=== PATIENT | female | born 1995 | race Two or more races ===

== ENCOUNTER 2017-03-10 19:53 | Emergency (ER) | payer MEDICAID ==
[~2017-03-10] VITALS: Ht 152.4 cm; Wt 90.7 kg
[2017-03-10 20:15] VITALS: BP 127/78
[2017-03-10] MEDS ORDERED: CIPROFLOXACIN500 M2 ORAL (20:16)
[2017-03-10 20:53] LABS: APPEARANCE,URINE CLEAR; BILIRUBIN, URINE NEGATIVE (NEGATIVE); GLUCOSE, URINE (UA) NEGATIVE (NEGATIVE); KETONES,URINE NEGATIVE (NEGATIVE); LEUKOCYTE ESTERASE ,URINE 1+ (NEGATIVE); NITRITE,URINE NEGATIVE (NEGATIVE); PH,URINE 6 (4.5-8.0); PROTEIN,URINE NEGATIVE (NEGATIVE); UROBILINOGEN,URINE NORMAL MG/DL (0.0-1.0)
[2017-03-10 20:57] LABS: COLOR,URINE YELLOW
[2017-03-10] MEDS ORDERED: COLACE100 MG ORAL (21:45)
[2017-03-10] MEDS ORDERED: PRILOSEC10 M1 ORAL (21:56)
[2017-03-10 21:59] VITALS: BP 120/71
--- NOTE | 2017-03-11 12:18 | Diagnostic Imaging Report ---
Indication: Abdominal pain Comparison: None Single view of the abdomen obtained Findings: Bowel gas pattern is nonspecific. No mass, ectopic calcifications, or abnormal gas collections are identified. Surgical clips noted in the right side of abdomen. The bones are unremarkable. Impression: No acute findings
--- NOTE | 2017-03-12 23:36 | Emergency Room Report ---
History of Present Illness General Chief Complaint: Abdominal Pain Source: Patient Present Illness HPI This is a 21-year-old female presented after increased left upper abdominal pain. Patient gradual onset of symptoms over the past few weeks. She previously been evaluated for similar symptoms at [facility]. The patient stated that she had previous CT imaging and was her previously diagnosed as having a urinary infection. She had finished antibiotics. She denied any diarrhea. She reported having some episodes of constipation. The patient denies vomiting or bloody stools. She denies being . Allergies: Coded Allergies: No Known Allergies (Unverified , 03/10/17) Patient History Past Medical History: see triage record Last Menstrual Period: 2 weeks ago Now: No : 1 Reviewed Nursing Documentation: PMH: Agreed, PSxH: Agreed Nursing Documentation-PMH Past Medical History: No Stated History Review of Systems All Other Systems: negative except mentioned in HPI Physical Exam Vital Signs Date Time Temp Pulse Resp B/P (MAP) Pulse Ox O2 Delivery O2 Flow Rate FiO2 03/10/17 20:11 97.9 03/10/17 20:15 72 15 127/78 98 Room Air Sp02 EP Interpretation: reviewed, normal General Appearance: normal inspection, well appearing, no apparent distress, alert, GCS 15 Head: atraumatic ENT: normal ENT inspection, hearing grossly normal, normal voice Neck: normal inspection, full range of motion, supple, no bony tend Respiratory: normal inspection, lungs clear, normal breath sounds, no respiratory distress, no retraction, no wheezing Cardiovascular #1: regular rate, rhythm, no edema Gastrointestinal: normal inspection, normal bowel sounds, non tender, soft, no guarding, no hernia Genitourinary: no CVA tenderness Musculoskeletal: normal inspection, back normal, normal range of motion Neurologic: normal inspection, alert, oriented x3, responsive, fretted instrument inspector III-XII nml as tested, motor strength/tone normal, speech normal Psychiatric: normal inspection, judgement/insight normal, mood/affect normal Skin: normal inspection, normal color, no rash Medical Decision Making Diagnostic Impression: Primary Impression: Abdominal pain ER Course Patient presented for abdominal pain. Differential diagnoses included ischemic bowel, appendicitis, perforated viscus, abdominal aortic aneurysm, inferior myocardial infarction, viral gastroenteritis. Patient's benign exam and does not appear to require any further imaging or laboratory testing at this time. KUB showed evidence of retained stool. There is no evidence of obstruction. The patient is advised to follow up with primary care doctor in 1-2 days. Patient is advised to return if any worsening condition or if any changes in status that are concerning. Labs Test 03/10/17 20:12 Urine Color Yellow Urine Appearance Clear Urine pH 6 (4.5-8.0) Urine Specific [place] 1.025 (1.005-1.035) Urine Protein Negative (NEGATIVE) Urine Glucose (UA) Negative (NEGATIVE) Urine Ketones Negative (NEGATIVE) Urine Occult Blood Negative (NEGATIVE) Urine Nitrite Negative (NEGATIVE) Urine Bilirubin Negative (NEGATIVE) Urine Urobilinogen Normal MG/DL (0.0-1.0) Urine Leukocyte Esterase 1+ (NEGATIVE) Urine RBC 0-2 /HPF (0 - 2) Urine WBC 2-4 /HPF (0 - 2) Urine Squamous Epithelial Cells Few /LPF (NONE/OCC) Urine Bacteria Moderate /HPF (NONE) Urine Mucus Many /LPF (NONE/OCC) Urine HCG, Qualitative Negative Other X-Ray Diagnostic Results Other X-Ray Diagnostic Results : # of Views/Limited Vs Complete: 1 View Indication: Pain EP Interpretation: No Impression: No acute disease Electronically Signed by: Electronically signed by Dr. Sebastián Muniz M.D. Last Vital Signs Date Time Temp Pulse Resp B/P (MAP) Pulse Ox O2 Delivery O2 Flow Rate FiO2 03/10/17 21:59 97.9 70 17 120/71 98 Room Air Status: improved Disposition: HOME, SELF-CARE Condition: Stable Scripts Omeprazole Magnesium (PRILOSEC) 10 Mg Suspdr.pkt 10 MG ORAL DAILY, #30 PACKET Prov: Sebastián Muniz 03/10/17 Docusate Sodium* (COLACE*) 100 Mg Capsule 100 MG ORAL THREE TIMES A DAY, #30 CAP Prov: Sebastián Muniz 03/10/17 Patient Instructions: Abdominal Pain, Adult Sebastián Muniz Mar 12, 2017 23:36
== END 2017-03-10 21:59 | disposition home or self-care (01) ==
LOC: EMR 20:50
DX: R10.12 Left upper quadrant pain (principal)
CPT/HCPCS: 74000; 81003; 81025; 87086; 99284